=== PATIENT | female | born 1975 | race African-American/Black ===

== ENCOUNTER 2020-09-29 01:49 | Emergency (ER) | payer SELFPAY ==
[~2020-09-29] VITALS: Ht 177.8 cm; Wt 85.0 kg
[2020-09-29 03:44] VITALS: BP 135/89
== END 2020-09-29 03:49 | disposition home or self-care (01) ==
LOC: ER 01:49
DX: N75.0 Cyst of Bartholin's gland (principal); Z59.0 Homelessness
CPT/HCPCS: 56420; 99283; 99284

== ENCOUNTER 2021-08-08 14:40 | Emergency (ER) | payer MEDICAID ==
[~2021-08-08] VITALS: Ht 180.3 cm; Wt 69.0 kg
[2021-08-08 15:41] VITALS: BP 142/89
== END 2021-08-08 18:37 | disposition left against medical advice (07) ==
LOC: ER 18:00
DX: Z53.21 Procedure and treatment not carried out due to patient leaving prior to being seen by health care provider (principal)

== ENCOUNTER 2023-07-21 14:47 | Emergency (ER) | payer OTHER ==
[~2023-07-21] VITALS: Ht 167.6 cm; Wt 86.0 kg
[~2023-07-21 14:47] MED LIST: IBUP-2028 MT
[2023-07-21 15:30] VITALS: BP 111/80; PULSE 72; RESP 20; TEMP 98.8; O2SAT 100
[2023-07-21 16:44] LABS: BASOPHILS % 0.4 % (0.0-2.0); DIFFERENTIAL COMMENT 0; EOSINOPHILS % 1.8 % (0.0-5.0); HEMATOCRIT. 31.7 % (36.0-48.0); LYMPHOCYTES % 40.1 % (20.0-50.0); MEAN CORPUSCULAR HEMOGLOBIN 22.5 pg (28.0-32.0); MEAN CORPUSCULAR HGB CONC 31.5 g/dL (31.0-37.0); MEAN CORPUSCULAR VOLUME 71.4 fL (81.0-99.0); MEAN PLATELET VOLUME 9.8 fl (7.4-10.4); MONOCYTES % 8.8 % (2.0-8.0); NEUTROPHILS % 48.9 % (40.0-76.0); PLATELET 243 x1000/uL (130-400); RED BLOOD CELL COUNT 4.43 mill/uL (4.2-5.4); RED CELL DISTRIBUTION WIDTH 19.8 % (11.6-14.6); WHITE BLOOD COUNT 7.1 x1000/uL (4.5-11.0)
[2023-07-21 16:59] LABS: HCG SCREEN NEGATIVE
[2023-07-21 17:03] LABS: CHLORIDE 113 mEq/L (98-107); INDEX HEMOLYSI 1 (1-3); INDEX ICTERIC 1 (1-4); INDEX LIPEMIC 1 (1-3); POTASSIUM 3.5 mEq/L (3.5-5.1); SODIUM 142 mEq/L (136-145)
[2023-07-21 17:20] LABS: ALANINE AMINOTRANSFERASE 31 IU/L (13-61); ALBUMIN 3.4 g/dL (3.4-5.0); ASPARTATE AMINOTRANSFERASE 22 IU/L (15-37); BILIRUBIN TOTAL 0.2 mg/dL (0.1-1.0); CALCIUM 8.4 mg/dL (8.5-10.1); CARBON DIOXIDE 27 mEq/L (21-32); CREATININE 0.9 mg/dL (0.6-1.3); GLUCOSE 89 mg/dL (70-105); UREA NITROGEN BLOOD 9 mg/dL (7-21)
[2023-07-21 17:38] LABS: PROTEIN TOTAL 7.1 g/dL (6.0-8.3)
== END 2023-07-21 17:21 | disposition left against medical advice (07) ==
LOC: ER 14:47
DX: Z53.21 Procedure and treatment not carried out due to patient leaving prior to being seen by health care provider (principal)
CPT/HCPCS: 36415; 80053; 84703; 85025; 99281

== ENCOUNTER 2023-07-28 11:54 | Emergency (ER) | payer OTHER ==
[~2023-07-28] VITALS: Ht 177.8 cm; Wt 105.1 kg
[2023-07-28 12:21] VITALS: BP 110/70; PULSE 87; RESP 16; TEMP 98.2; O2SAT 99
[2023-07-28 16:04] LABS: CLARITY URINE CLEAR (CLEAR); COLOR URINE YELLOW (YELLOW); GLUCOSE URINE NEGATIVE (NEGATIVE); KETONES URINE NEGATIVE (NEGATIVE); LEUKOCYTE ESTERASE URINE TRACE (NEGATIVE); NITRITE URINE NEGATIVE (NEGATIVE); OCCULT BLOOD URINE NEGATIVE (NEGATIVE); PROTEIN URINE NEGATIVE (NEGATIVE); SPECIFIC GRAVITY URINE 1.017 (1.005-1.030); UROBILINOGEN URINE 0.2 E.U./dL (0.2-1.0)
[2023-07-28 16:08] LABS: RBC URINE NONE SEEN /hpf (0-2); WBC URINE 0-2 /hpf (0-2); YEAST URINE NONE SEEN
[2023-07-28 16:29] LABS: BACTERIA URINE 1+; SQUAMOUS EPITHELIAL CELL URINE FEW /lpf (RARE/1+)
== END 2023-07-28 16:36 | disposition home or self-care (01) ==
LOC: ER 11:54
DX: B34.9 Viral infection, unspecified (principal); Z88.1 Allergy status to other antibiotic agents
CPT/HCPCS: 81003; 99283

== ENCOUNTER 2025-02-06 05:20 | Emergency (ER) | payer MEDICAID, OTHER ==
[~2025-02-06] VITALS: Ht 170.2 cm; Wt 80.0 kg
[2025-02-06 05:23] VITALS: O2SAT 98
[2025-02-06 07:49] LABS: BASOPHILS % 0.6 % (0.0-2.0); DIFFERENTIAL COMMENT 0; EOSINOPHILS % 0.2 % (0.0-5.0); HEMATOCRIT. 33.7 % (36.0-48.0); HEMOGLOBIN. 10.1 g/dL (12.0-16.0); LYMPHOCYTES % 9.5 % (20.0-50.0); MEAN CORPUSCULAR HEMOGLOBIN 21.4 pg (28.0-32.0); MEAN CORPUSCULAR HGB CONC 30.1 g/dL (31.0-37.0); MEAN CORPUSCULAR VOLUME 71.1 fL (81.0-99.0); MEAN PLATELET VOLUME 8.8 fl (7.4-10.4); MONOCYTES % 4.1 % (2.0-8.0); NEUTROPHILS % 85.6 % (40.0-76.0); PLATELET 351 x1000/uL (130-400); RED BLOOD CELL COUNT 4.74 mill/uL (4.2-5.4); WHITE BLOOD COUNT 18.4 x1000/uL (4.5-11.0)
[2025-02-06 08:01] LABS: CHLORIDE 103 mEq/L (98-107); POTASSIUM 3.5 mEq/L (3.5-5.1); SODIUM 138 mEq/L (136-145)
[2025-02-06 08:02] LABS: CARBON DIOXIDE 23 mEq/L (21-32)
[2025-02-06 08:03] LABS: CALCIUM 9.3 mg/dL (8.7-10.4)
[2025-02-06] MEDS: MORPHINE SULFATE 4 MG/ML INJ (FOR IV/IM USE) IV ONE (08:03)
[2025-02-06] MEDS: ONDANSETRON HCL 4MG/2ML INJ IV ONE (08:03)
[2025-02-06 08:07] LABS: CREATININE 0.8 mg/dL (0.6-1.0); GLUCOSE 174 mg/dL (70-105)
[2025-02-06 08:08] LABS: UREA NITROGEN BLOOD 10 mg/dL (9-23)
[2025-02-06 08:27] LABS: TROPONIN I HIGH SENSITIVITY 201 ng/L (3.0-34)
[2025-02-06] MEDS ORDERED: ASPIRIN 325MG EC TABLET PO ONE (09:15)
[2025-02-06] MEDS ORDERED: NALOXONE HCL 0.4MG/ML VIAL IV PRN (09:15)
[2025-02-06 10:00] VITALS: TEMP 36.9
[2025-02-06 10:12] LABS: HCG SCREEN NEGATIVE
[2025-02-06 11:00] VITALS: O2SAT 99
[2025-02-06] MEDS: ASPIRIN 325MG EC TABLET PO NR (11:58)
[2025-02-06] MEDS: IOHEXOL-350 100 ML BOTTLE ONE (12:00)
[2025-02-06 12:03] VITALS: BP 157/82; PULSE 82; RESP 13
[2025-02-06] MEDS: HYDROCODONE/ACETAMINOPHEN 10/325MG TABLET PO PRN (12:03)
== END 2025-02-06 13:13 | disposition left against medical advice (07) ==
LOC: ER 05:29 → EDBEDREQ 05:36 → ER 13:13
DX: R79.89 Other specified abnormal findings of blood chemistry (principal); J45.909 Unspecified asthma, uncomplicated; Z79.899 Other long term (current) drug therapy
CPT/HCPCS: 80048; 84703; 83880; 85025; 85379; 84484; 36415; 71045; 71275; 93005; 96374; 96375; 99285; Q9967; J2405; J2270; Z7610 ×4